=== PATIENT | male | born 1960 | race Hispanic/Latino ===

== ENCOUNTER 2017-05-24 14:23 | Emergency (ER) | payer OTHER ==
[~2017-05-24] VITALS: Ht 172.7 cm; Wt 89.4 kg
[2017-05-24 14:41] VITALS: BP 173/92
[2017-05-24] MEDS ORDERED: CEPHALEXIN500 M1 PO (14:44)
[2017-05-24] MEDS ORDERED: GLIMEPIRIDE4 MG PO (15:02)
[2017-05-24] MEDS ORDERED: METFORMIN HCL1000 MG PO (15:02)
[2017-05-24] MEDS ORDERED: LISINOPRIL5 MG PO (15:03)
== END 2017-05-24 15:04 | disposition home or self-care (01) | DRG 605 ==
LOC: ED 14:23
DX: S61.012A Laceration without foreign body of left thumb without damage to nail, initial encounter (principal); W31.82XA Contact with other commercial machinery, initial encounter; Y93.G9 Activity, other involving cooking and grilling; Y92.512 Supermarket, store or market as the place of occurrence of the external cause